=== PATIENT | male | born 1950 | race Hispanic/Latino ===

== ENCOUNTER 2017-03-19 15:32 | Emergency (ER) | payer MEDICARE ==
[2017-03-19 16:31] VITALS: BP 124/62
== END 2017-03-19 19:07 | disposition home or self-care (01) ==
LOC: ED 15:32
DX: S42.202A Unspecified fracture of upper end of left humerus, initial encounter for closed fracture (principal); I10 Essential (primary) hypertension; J44.9 Chronic obstructive pulmonary disease, unspecified; Z86.73 Personal history of transient ischemic attack (TIA), and cerebral infarction without residual deficits; Z87.891 Personal history of nicotine dependence; W01.0XXA Fall on same level from slipping, tripping and stumbling without subsequent striking against object, initial encounter; Y93.89 Activity, other specified; Y99.8 Other external cause status; Y92.89 Other specified places as the place of occurrence of the external cause

== ENCOUNTER 2019-11-22 13:14 | Emergency (ER) | payer MEDICARE ==
--- NOTE | 2019-11-22 13:40 | Emergency Department Report ---
ED CPR HPI - General Chief Complaint: Cardiac Arrest/CPR Stated Complaint: CARDIAC ARREST Time Seen by Provider: 11/22/19 13:30 Source: EMS - History of Present Illness Initial Comments: Patient is 69 years old male with history of CVA, hypertension and COPD. Patient brought to the emergency room via EMS in full cardiac arrest. EMS stated that patient was talking to his and all of a sudden stopped breathing and collapsed. EMS started patient on ACLS protocol. Initial rhythm showed asystole. Upon arrival to the ER patient immediately intubated by me. ACLS protocol continued in the ER but unfortunately patient continued to be in asystole. Patient pronounced at 1:25 PM. Initial call to EMS came at 12:41 PM. For further information please refer to code sheet. MD Complaint: stopped breathing, collapsed during rest Bystander CPR Performed: No AED Applied by Bystander/Dominatrix: No Shock Advised: No Initial Findings in the Field: no respirations, no pulse, systole ROSC in the Field: No Associated Injuries: No - Related Data Home Medications Medication Instructions Recorded Confirmed Last Taken Doxazosin [Cardura] 2 mg PO QDAY 05/03/18 05/03/18 Unknown carvediloL [Coreg] 12.5 mg PO BID 05/03/18 05/03/18 Unknown Previous Rx's Medication Instructions Recorded Last Taken Type traMADoL [Ultram 50 MG tab] 50 mg PO Q6HR PRN #12 tablet 03/19/17 Unknown Rx AtorvaSTATin [Lipitor] 40 mg PO QHS #30 tablet 05/05/18 Unknown Rx Clopidogrel [Plavix] 75 mg PO QDAY #30 tablet 05/05/18 Unknown Rx Famotidine [Pepcid] 20 mg PO DAILY #30 tablet 05/05/18 Unknown Rx cloNIDine [Catapres] 0.2 mg PO BID #60 tablet 05/05/18 Unknown Rx lisinopriL [Zestril TAB] 20 mg PO QDAY #30 tablet 05/05/18 Unknown Rx Allergies Allergy/AdvReac Type Severity Reaction Status Date / Time No Known Allergies Allergy Unverified 03/19/17 16:24 ED Review of Systems ROS: Stated complaint: CARDIAC ARREST Other details as noted in HPI Comment: Unobtainable due to pts medical conditions ED Past Medical Hx - Past Medical History Hx Hypertension: Yes Hx CVA: Yes Hx COPD: Yes Additional medical history: TIA"S - Surgical History Additional Surgical History: DOUBLE HERNIA REPAIR. SINGLE HERNIA REPAIR. RIGHT ANKLE SURGERY - Social History Smoking Status: Former Smoker - Medications Home Medications: Home Medications Medication Instructions Recorded Confirmed Last Taken Type traMADoL [Ultram 50 MG tab] 50 mg PO Q6HR PRN #12 tablet 03/19/17 05/03/18 Unknown Rx Doxazosin [Cardura] 2 mg PO QDAY 05/03/18 05/03/18 Unknown History carvediloL [Coreg] 12.5 mg PO BID 05/03/18 05/03/18 Unknown History AtorvaSTATin [Lipitor] 40 mg PO QHS #30 tablet 05/05/18 Unknown Rx Clopidogrel [Plavix] 75 mg PO QDAY #30 tablet 05/05/18 Unknown Rx Famotidine [Pepcid] 20 mg PO DAILY #30 tablet 05/05/18 Unknown Rx cloNIDine [Catapres] 0.2 mg PO BID #60 tablet 05/05/18 Unknown Rx lisinopriL [Zestril TAB] 20 mg PO QDAY #30 tablet 05/05/18 Unknown Rx ED Physical Exam - General General appearance: other (CPR IN PROGRESS) - Head Head exam: Present: atraumatic - Eye Pupils: Present: other ( 4 MM DILATED AND FIXED) - Respiratory Respiratory exam: Present: other (no spontaneous breathing) - Cardiovascular Cardiovascular Exam: Present: other (no spontaneous heart tone, CPR in progress) - GI/Abdominal GI/Abdominal exam: Present: soft. Absent: distended - Neurological Exam Neurological exam: Present: other (CPR in progress) - Skin Skin exam: Present: warm - Intubation Time Out Performed: Yes (no GAG reflex) Laryngoscope: Jorge Size: 4 ET Tube Size: 7.5 Tube Secured Location: teeth Tube Placement Confirmation: visualized tube passing t, equal breath sounds bilat, no breath sounds over epi, confirmation by capnometr Patient Tolerated Procedure: well, no complications Intubation Complications: none Critical Care Time: Yes Critical care time in (mins) excluding proc time.: 30 Critical care attestation.: If time is entered above; I have spent that time in minutes in the direct care of this critically ill patient, excluding procedure time. ED Disposition Clinical Impression: Cardiopulmonary arrest Disposition: [id number] Is pt being admited?: No Condition: Stable
== END 2019-11-22 18:00 ==
LOC: ED 13:14
DX: I46.9 Cardiac arrest, cause unspecified (principal); I10 Essential (primary) hypertension; Z87.891 Personal history of nicotine dependence; Z79.899 Other long term (current) drug therapy
CPT/HCPCS: 31500; 82962; 92950